=== PATIENT | female | born 1950 | race Caucasian/White ===

== ENCOUNTER 2017-01-30 18:06 | Inpatient (IN) | payer OTHER ==
[~2017-01-30] VITALS: Ht 152.4 cm; Wt 71.2 kg
[~2017-01-30 18:06] MED LIST: ATIVAN1 MG PO; BENADRYL 25MG C25 MG PO; BREO ELLIPTA 11 EACH INH; COZAAR25 MG PO; DOXYCYCLINE MO100 M1 PO; IPRAT-ALBUT 0.5-3 ML INH; KEFLEX CAP 500500 MG PO; LASIX40 MG PO; MEDROL DOSEPAK 24 MG PO; MIRALAX17 GM PO; NEURONTIN 300300 MG PO; NITROLINGUAL12 GM PO; POTASSIUM CHLO10 MEQ PO; PROTONIX40 MG PO; SPIRIVA HANDIH18 MCG INH; SPIRIVA18 MCG INH; TIKOSYN250 MCG PO; TOPROL XL50 MG PO; XARELTO20 MG PO; ZANAFLEX4 MG PO; ZOFRAN 4 MG TAB4 MG PO
[2017-01-30 19:20] LABS: HEMOGLOBIN 12.1 gm/dl (12.3-15.3); RED BLOOD COUNT 3.88 M/UL (4.00-5.10); WHITE BLOOD COUNT 9.8 K/UL (4.5-11.0)
[2017-01-30 19:40] LABS: BUN/CREATININE RATIO 26 (0-10)
[2017-01-31 07:22] LABS: HEMOGLOBIN 12.1 gm/dl (12.3-15.3); RED BLOOD COUNT 3.88 M/UL (4.00-5.10)
[2017-01-31 07:51] LABS: BUN/CREATININE RATIO 22 (0-10)
[2017-01-31] MEDS ORDERED: ALBUTEROL0.63 MG/3 INH (11:01)
[2017-01-31] MEDS ORDERED: VENTOLIN HFA 66.7 GM INH (11:03)
[2017-01-31] MEDS ORDERED: ZOFRAN4 MG PO (11:04)
[2017-01-31] MEDS ORDERED: XARELTO20 MG PO (11:06)
[2017-01-31] MEDS ORDERED: ZANTAC 150 MG150 MG PO (16:23)
[2017-01-31] MEDS ORDERED: SPIRIVA18 MCG INH (16:26)
[2017-01-31] MEDS ORDERED: SPIRIVA RESPIMAT4 GM INH (16:28)
[2017-01-31] MEDS ORDERED: TIKOSYN PO (16:30)
[2017-01-31] MEDS ORDERED: ONE DAILY FOR1 EAC2 PO (16:32)
[2017-02-01 05:36] LABS: HEMOGLOBIN 11.9 gm/dl (12.3-15.3); RED BLOOD COUNT 3.84 M/UL (4.00-5.10)
[2017-02-01 05:49] LABS: BUN/CREATININE RATIO 26 (0-10)
[2017-02-01] MEDS ORDERED: MS CONTIN30 MG PO (17:32)
[2017-02-02] MEDS ORDERED: DOXYCYCLINE HY100 MG PO (13:05)
[2017-02-02] MEDS ORDERED: MEDROL DOSEPAK 24 MG PO (13:18)
[2017-03-12] MEDS ORDERED: BREO ELLIPTA 11 EACH INH (00:57)
[2017-03-12] MEDS ORDERED: ZYRTEC10 M3 PO (00:57)
[2017-03-12] MEDS ORDERED: TOPROL XL50 MG PO (00:58)
[2017-03-12] MEDS ORDERED: ISOSORBIDE MONO30 MG PO (00:58)
[2017-03-12] MEDS ORDERED: TIKOSYN500 MCG PO (00:59)
[2017-03-17] MEDS ORDERED: CORDARONE 200M200 MG PO ×2 (13:26→13:27)
[2017-03-17] MEDS ORDERED: PREDNISONE 10 M10 MG PO (13:30)
[2017-03-17] MEDS ORDERED: BUSPAR 5MG TABLE5 MG PO (13:41)
[2017-03-17] MEDS ORDERED: LIPITOR TAB 2020 MG PO (13:41)
[2017-03-17] MEDS ORDERED: CELEXA40 MG PO (13:41)
[2017-03-17] MEDS ORDERED: ASPIR-LOW81 MG PO (13:41)
[2017-03-28] MEDS ORDERED: LEVALBUTER0.63 MG/3 INH (12:53)
== END 2017-02-02 13:51 | disposition home or self-care (01) | DRG 308 ==
LOC: ER1 18:06 → PROG CARE 21:00 → ZEROF 21:00 → PROG CARE 01-31 16:19
PROVIDERS: Emergency Medicine; Internal Medicine; ADMIT Internal Medicine
DX: I48.91 Unspecified atrial fibrillation (principal); J81.0 Acute pulmonary edema; J44.1 Chronic obstructive pulmonary disease with (acute) exacerbation; J96.11 Chronic respiratory failure with hypoxia; J96.12 Chronic respiratory failure with hypercapnia; I50.32 Chronic diastolic (congestive) heart failure; I25.10 Atherosclerotic heart disease of native coronary artery without angina pectoris; Z99.81 Dependence on supplemental oxygen; F17.210 Nicotine dependence, cigarettes, uncomplicated; H53.8 Other visual disturbances; W19.XXXS Unspecified fall, sequela; Z86.73 Personal history of transient ischemic attack (TIA), and cerebral infarction without residual deficits; E78.5 Hyperlipidemia, unspecified; Z95.1 Presence of aortocoronary bypass graft; I11.0 Hypertensive heart disease with heart failure; F41.9 Anxiety disorder, unspecified; G89.4 Chronic pain syndrome; Z98.890 Other specified postprocedural states; Z79.899 Other long term (current) drug therapy; Z79.82 Long term (current) use of aspirin; Z79.01 Long term (current) use of anticoagulants; D53.9 Nutritional anemia, unspecified; E87.70 Fluid overload, unspecified; F39 Unspecified mood [affective] disorder; K21.9 Gastro-esophageal reflux disease without esophagitis
CPT/HCPCS: ECHO; 36415; 71010; 80053; 80061; 82550; 82553; 82728; 83036; 83540; 83550; 83735; 83874; 83880; 84443; 84484; 85025; 85027; 85610; 85730; 87070; 87077; 87186; 87205; 93005; 93306; 94640; 94660; 94664; 96374; 99285; J2270; J7509